=== PATIENT | male | born 1985 | race African-American/Black ===

== ENCOUNTER 2022-12-13 09:55 | Outpatient (CLI) | payer OTHER, SELFPAY ==
[2022-12-13 19:56] LABS: HIV 1/2 Ab P24 Ag Result Negative (Negative)
[2022-12-14 11:57] LABS: Rapid Plasma Reagin Non-Reactive (NonReactive)
[2022-12-19 07:50] LABS: Herpes Simplex Type 1 DNA PCR Not Detected; Herpes Simplex Type 2 DNA PCR Not Detected
== END 2022-12-13 09:56 | disposition home or self-care (01) ==
LOC: ANHGOSHLAB 09:57
PROVIDERS: PCP Internal Medicine; Visit Provider Nurse Practitioner
DX: Z72.51 High risk heterosexual behavior (principal)
CPT/HCPCS: 36415; 86592; 86703; 87491; 87529; 87591; G0432

== ENCOUNTER 2023-07-03 11:30 | Outpatient (CLI) | payer OTHER, SELFPAY ==
[2023-07-03 21:50] LABS: Chlamydia trachomatis NOT DETECTED (NOT DETECTE); Neisseria gonorrhoeae PCR NOT DETECTED (NOT DETECTE)
== END 2023-07-03 11:31 | disposition home or self-care (01) ==
LOC: ANHGOSHLAB 11:32
PROVIDERS: PCP Internal Medicine; Visit Provider Clinical Nurse Specialist
DX: Z20.2 Contact with and (suspected) exposure to infections with a predominantly sexual mode of transmission (principal)
CPT/HCPCS: 87491; 87591

== ENCOUNTER 2024-01-17 09:29 | Outpatient (CLI) | payer BC, OTHER, SELFPAY ==
[2024-01-17 12:18] LABS: Basophils Percent Auto 0.3 % (0.2-1.2); Eosinophils Percent Auto 0.3 % (0-4.4); Hematocrit 46.2 % (42.0-52.0); Hemoglobin 13.9 g/dL (14.0-18.0); Immature Granulocyte Absolute 0.07 K/mm3 (0.00-0.031); Immature Granulocyte Percent A 0.8 % (0-0.5); Lymphocytes Absolute Auto 3.85 K/mm3 (0.9-3.2); Lymphocytes Percent Auto 42.1 % (18.3-44.2); Mean Corpuscular HGB Conc 30.1 g/dl (32-36); Mean Corpuscular Hemoglobin 25.3 pg (26-34); Mean Corpuscular Volume 84.2 fl (80-100); Mean Platelet Volume 9.9 fl (7.4-10.4); Monocytes Absolute Auto 0.7 K/mm3 (0.1-0.6); Monocytes Percent Auto 7.2 % (2.6-8.5); Neutrophils Absolute Auto 4.5 K/mm3 (1.3-6.7); Neutrophils Percent Auto 49.3 % (45.5-73.1); Platelet Count Result 306 k/mm3 (150-375); Red Blood Count 5.49 M/mm3 (4.6-6.20); Red Cell Distribution Width 15.4 % (11.5-14.5); White Blood Count 9.1 K/mm3 (4.5-10.0)
[2024-01-17 13:03] LABS: HIV 1/2 Ab P24 Ag Result Negative (Negative)
[2024-01-17 13:56] LABS: Chlamydia trachomatis NOT DETECTED (NOT DETECTE); Neisseria gonorrhoeae PCR NOT DETECTED (NOT DETECTE)
[2024-01-17 14:11] LABS: Hepatitis C Virus Antibody Negative (Negative)
[2024-01-18 00:09] LABS: Alanine Aminotransferase 58 U/L (6-50); Albumin Level 4.5 g/dL (3.5-5.1); Alkaline Phosphatase 104 U/L (38-126); Anion Gap 5 mmol/L (4-12); Aspartate Amino Transferase 42 U/L (17-59); Bilirubin,Total 0.4 mg/dL (0.2-1.3); Blood Urea Nitrogen 15 mg/dL (9-20); Calcium 9.7 mg/dL (8.4-10.2); Carbon Dioxide 29 mmol/L (22-30); Chloride 107 mmol/L (98-107); Cholesterol 146 mg/dL (0-200); Estimated Glomerular Filt Rate > 60; Glucose 83 mg/dL (65-110); HDL Direct 33 mg/dL; Sodium 141 mmol/L (137-145); Triglycerides 82 mg/dL (<150)
[2024-01-18 00:21] LABS: LDL Cholesterol Direct 92 mg/dL
[2024-01-18 00:40] LABS: Prostate Specific Antigen 1.5 ng/mL (< OR = 4.0)
[2024-01-18 12:00] LABS: Rapid Plasma Reagin Non-Reactive (NonReactive)
[2024-01-23 06:07] LABS: Herpes Simplex Type 1 DNA PCR Not Detected
[2024-01-23 06:08] LABS: Herpes Simplex Type 2 DNA PCR Not Detected
[2024-01-24 11:27] LABS: LH 10.6
[2024-01-24 11:28] LABS: Testosterone Total 355
[2024-01-24 11:29] LABS: Testosterone Free 72.1
[2024-01-25 11:00] LABS: FSH 11.5
== END 2024-01-17 09:30 | disposition home or self-care (01) ==
LOC: ANHGOSHLAB 09:31
PROVIDERS: PCP Internal Medicine; Visit Provider Nurse Practitioner
DX: E29.1 Testicular hypofunction (principal); Z72.51 High risk heterosexual behavior; Z13.220 Encounter for screening for lipoid disorders; Z13.29 Encounter for screening for other suspected endocrine disorder; Z20.2 Contact with and (suspected) exposure to infections with a predominantly sexual mode of transmission
CPT/HCPCS: 36415; 80053; 80061; 83001; 83002; 84153; 84402; 84403; 85025; 86592; 86703; 86803; 87491; 87529; 87591; G0432

== ENCOUNTER 2024-07-05 12:30 | Outpatient (CLI) | payer BC, OTHER, SELFPAY ==
[2024-07-05 16:24] LABS: HIV 1/2 Ab P24 Ag Result Negative (Negative)
[2024-07-05 17:12] LABS: Chlamydia trachomatis NOT DETECTED (NOT DETECTE); Neisseria gonorrhoeae PCR NOT DETECTED (NOT DETECTE)
[2024-07-05 18:10] LABS: Hepatitis C Virus Antibody Negative (Negative)
[2024-07-05 20:57] LABS: Rapid Plasma Reagin Non-Reactive (NonReactive)
[2024-07-10 21:45] LABS: Herpes Simplex Type 1 DNA PCR Not Detected (Not Detected); Herpes Simplex Type 2 DNA PCR Not Detected (Not Detected)
== END 2024-07-05 12:31 | disposition home or self-care (01) ==
LOC: ANHGOSHLAB 12:32
PROVIDERS: PCP Internal Medicine; Visit Provider Nurse Practitioner
DX: Z20.2 Contact with and (suspected) exposure to infections with a predominantly sexual mode of transmission (principal)
CPT/HCPCS: 36415; 86592; 86703; 86803; 87491; 87529; 87591; G0432